=== PATIENT | male | born 1975 ===

== ENCOUNTER 2018-02-03 18:03 | Emergency (ER) | payer SELFPAY ==
[2018-02-03 19:58] LABS: ABS Basophils 0.1 10^3/ul (0-0.2); ABS Eosinophils 0.1 10^3/ul (0-0.6); ABS Monocytes 0.6 10^3/ul (0-0.8); ABS Neutrophils 5.8 10^3/ul (1.5-7.7); ABS Nucleated RBC 0 10^3/ul; Eosinophil % 1.1 % (0-6); Hematocrit 46 % (42-52); Hemoglobin 16.1 g/dl (14.0-18.0); Lymphocyte % 31.8 % (25-47); Mean Corpuscular HGB Conc 35 g/dl (31-36); Mean Corpuscular Hemoglobin 31 pg (27-31); Mean Corpuscular Volume 88 fL (80-94); Mean Platelet Volume 7 um3 (7.4-10.4); Nucleated Red Blood Cells % 0; Platelet Count 293 10^3/ul (150-450); Red Blood Count 5.24 10^6/ul (4.0-5.4); Red Cell Distribution Width 13 % (10.5-15); White Blood Count 9.6 10^3/ul (3.5-10.8)
[2018-02-03 20:14] LABS: EGFR Non-African American 78.7 (>60)
[2018-02-03 20:47] VITALS: BP 131/81
--- NOTE | 2018-02-10 23:43 | ED ---
Tiera Reid Julia, scribed for Ronnell Lyman MD on 02/03/18 at 202 . HPI Chest Pain - HPI Summary HPI Summary: This patient is a 42 year old M presenting to [facility] with a chief complaint of intermittent dull left chest pain for the past month, described as muscular. Patient denies nausea, vomiting, diaphoresis, fever, abdominal pain, cough, SOB , wheezing, and radiation to back. The patient rates the pain 3/10 in severity. Symptoms unchanged by activity. Patient went to [facility] for symptoms and they recommended he come to the Emergency Department. - History of Current Complaint Chief Complaint: EDChestPainROMI Hx Obtained From: Patient Onset/Duration: Started Weeks Ago Timing: Intermittent Pain Intensity: 3 Pain Scale Used: 0-10 Numeric Chest Pain Location: Left Anterior Chest Pain Radiates: No Character: Other: - "muscular" Associated Signs and Symptoms: Negative: Shortness of Breath, Diaphoresis, Nausea, Cough, Abdominal Pain, Vomiting - Allergy/Home Medications Allergies/Adverse Reactions: Allergies Allergy/AdvReac Type Severity Reaction Status Date / Time aspirin Allergy See Comment Verified 02/03/18 19:31 PMH/Surg Hx/FS Hx/Imm Hx Opthamlomology History: Denies: Hx Legally Blind EENT History: Denies: Hx Deafness Infectious Disease History: No Infectious Disease History: Denies: Traveled Outside the [place] in Last 30 Days - Family History Known Family History: Positive: Cardiac Disease - father of [place] at age 73 - Social History Alcohol Use: Occasionally Substance Use Type: Reports: Marijuana Smoking Status (MU): Former Smoker Review of Systems Negative: Fever, Skin Diaphoresis Positive: Chest Pain Negative: Shortness Of Breath Negative: Abdominal Pain, Vomiting, Nausea All Other Systems Reviewed And Are Negative: Yes Physical Exam - Summary Physical Exam Summary: Appearance: Well appearing, no pain distress Skin: warm, dry, reflects adequate perfusion Head/face: normal Eyes: EOMI, BRYCE ENT: normal Neck: supple, non-tender Respiratory: CTA, breath sounds present Cardiovascular: RRR, pulses symmetrical Abdomen: non-tender, soft Bowel: present Musculoskeletal:, strength/ROM intact, tenderness to L shoulder with palpation Neuro: normal, sensory motor intact, A&Ox3 Triage Information Reviewed: Yes Vital Signs On Initial Exam: Initial Vitals Temp Pulse Resp BP Pulse Ox 97.5 F 83 16 152/94 96 02/03/18 18:08 02/03/18 18:08 02/03/18 18:08 02/03/18 18:08 02/03/18 18:08 Vital Signs Reviewed: Yes Diagnostics - Vital Signs Vital Signs Temp Pulse Resp BP Pulse Ox 02/03/18 19:31 79 98 02/03/18 18:08 97.5 F 83 16 152/94 96 - Laboratory Lab Results: Lab Results 02/03/18 02/03/18 Range/Units 19:50 19:50 WBC 9.6 (3.5-10.8) 10^3/ul RBC 5.24 (4.0-5.4) 10^6/ul Hgb 16.1 (14.0-18.0) g/dl Hct 46 (42-52) % MCV 88 (80-94) fL MCH 31 (27-31) pg MCHC 35 (31-36) g/dl RDW 13 (10.5-15) % Plt Count 293 (150-450) 10^3/ul MPV 7 L (7.4-10.4) um3 Neut % (Auto) 60.6 (38-83) % Lymph % (Auto) 31.8 (25-47) % Taylor % (Auto) 5.9 (0-7) % Eos % (Auto) 1.1 (0-6) % Baso % (Auto) 0.6 (0-2) % Absolute Neuts (auto) 5.8 (1.5-7.7) 10^3/ul Absolute Lymphs (auto) 3.0 (1.0-4.8) 10^3/ul Absolute Monos (auto) 0.6 (0-0.8) 10^3/ul Absolute Eos (auto) 0.1 (0-0.6) 10^3/ul Absolute Basos (auto) 0.1 (0-0.2) 10^3/ul Absolute Nucleated RBC 0 10^3/ul Nucleated RBC % 0 Sodium 138 (133-145) mmol/L Potassium 4.2 (3.5-5.0) mmol/L Chloride 104 (101-111) mmol/L Carbon Dioxide 28 (22-32) mmol/L Anion Gap 6 (2-11) mmol/L BUN 14 (6-24) mg/dL Creatinine 1.04 (0.67-1.17) mg/dL Est GFR ( Amer) 101.2 (>60) Est GFR (Non-Af Amer) 78.7 (>60) BUN/Creatinine Ratio 13.5 (8-20) Glucose 96 (70-100) mg/dL Calcium 9.6 (8.6-10.3) mg/dL Total Bilirubin 0.60 (0.2-1.0) mg/dL AST 22 (13-39) U/L ALT 30 (7-52) U/L Alkaline Phosphatase 56 (34-104) U/L Troponin I 0.00 (<0.04) ng/mL Total Protein 7.4 (6.4-8.9) g/dL Albumin 4.3 (3.2-5.2) g/dL Globulin 3.1 (2-4) g/dL Albumin/Globulin Ratio 1.4 (1-3) Result Diagrams: 02/03/18 19:50 02/03/18 19:50 Lab Statement: Any lab studies that have been ordered have been reviewed, and results considered in the medical decision making process. - EKG 1812 Cardiac Rate: NL EKG Rhythm: Sinus Rhythm EKG Interpretation: borderline left axis deviation, otherwise normal Chest Pain Course/Dx - Course Course Of Treatment: Patient presents with intermittent dull left chest pain for the past month, described as "muscular". Patient denies any other symptoms. An EKG is unremarkable. Bloodwork is unremarkable. Patient is discharged. - Diagnoses Provider Diagnoses: Left shoulder tendinitis, Left shoulder pain Discharge - Discharge Plan Condition: Good Disposition: HOME Patient Education Materials: Tendinitis (ED) Referrals: No Primary Care Phys,NOPCP [Primary Care Provider] - The documentation as recorded by the Tiera alanis Julia accurately reflects the service I personally performed and the decisions made by me, Ronnell Lyman MD.
== END 2018-02-03 20:50 | disposition home or self-care (01) ==
LOC: ED 18:03
DX: M75.92 Shoulder lesion, unspecified, left shoulder (principal); R07.9 Chest pain, unspecified; Z88.6 Allergy status to analgesic agent; Z87.891 Personal history of nicotine dependence
CPT/HCPCS: 36415; 80053; 84484; 85025; 93005; 99282